=== PATIENT | female | born 1970 | race Caucasian/White ===

== ENCOUNTER 2018-11-05 09:10 | Day surgery (SDC) | payer OTHER ==
[2018-11-05] MEDS ORDERED: POLYMYXIN/BACITRACIN 1L IRRIG IRR ×2 (10:00→12:30)
[2018-11-05] MEDS ORDERED: SOD CHLORIDE 0.9% 1,000 ML IV (10:00)
[2018-11-05] MEDS ORDERED: HEPARIN 1000 UNITS/ML 10 ML INJ (12:16)
[2018-11-05] MEDS ORDERED: MIDAZOLAM 1 MG/ML 2 ML INJ (12:16)
[2018-11-05] MEDS ORDERED: FENTAnyl 50 MCG/ML VIAL (12:16)
[2018-11-05] MEDS ORDERED: CEFAZOLIN 1 GM/50 ML (PMX) 100 ML IVPB (12:22)
== END 2018-11-05 15:20 | disposition home or self-care (01) ==
LOC: SDS 09:10
DX: C50.911 Malignant neoplasm of unspecified site of right female breast (principal); Z17.0 Estrogen receptor positive status [ER+]
CPT/HCPCS: 36561